=== PATIENT | female | born 1995 | race Two or more races ===

== ENCOUNTER 2018-07-02 11:29 | Emergency (ER) | payer OTHER ==
[~2018-07-02] VITALS: Ht 167.6 cm; Wt 66.7 kg
--- NOTE | 2018-07-02 11:49 | NUR ---
[id number] FROM CLINIC, VAGINAL BLEEDING SINCE THIS MORNING, 2-3 MINS CONTRATION, G3, P2, 17 WEEKS . PAIN IS 10/10. PT IS CRYING AND GUARDING FROM THE PAIN. SHE IS AOX4, AMB, TACHYCARDIC, RR EVEN AND UNLABORED ON RA. SKIN IS WARM, DRY, INTACT. READY FOR EVAL.
[2018-07-02] MEDS ORDERED: HYDROMORPHONE 1 MG/1 ML DISP.SYRIN ONE ×2 (11:52→13:08)
[2018-07-02] MEDS ORDERED: ONDANSETRON HCL/PF 4 MG/2 ML VIAL ONE (11:52)
[2018-07-02 11:54] LABS: BASOPHILS % (AUTO) 0.1 % (0.0-2.0); HEMATOCRIT 36 % (33-45); HEMOGLOBIN 12.2 g/dL (11.5-14.8); LYMPHOCYTES # (AUTO) 0.4 /CMM (0.8-4.8); MEAN CORPUSCULAR HGB CONC 34 g/dl (31.0-36.0); MEAN CORPUSCULAR VOLUME 88 fL (82-100); MONOCYTES # (AUTO) 0.3 /CMM (0.1-1.30); MONOCYTES % (AUTO) 2.2 % (2.0-12.0); NEUTROPHILS % (AUTO) 94.7 % (43.0-81.0); PLATELET COUNT (AUTO) 221 /CMM (150-450); WHITE BLOOD COUNT (AUTO) 13.8 K/uL (4.3-11.0)
[2018-07-02] MEDS ORDERED: ONDANSETRON HCL/PF 4 MG/2 ML VIAL IVP ONE (12:00)
[2018-07-02] MEDS ORDERED: IV NS 0.9% 1,000 ML BAG IV ONE (12:00)
[2018-07-02] MEDS ORDERED: HYDROMORPHONE INJ 2 MG/ML DISP.SYRIN IV ONE (12:00)
--- NOTE | 2018-07-02 12:02 | NUR ---
MEDICATION GIVEN, EASEMENT MAN AT BEDSIDE. WILL CONT TO MONITOR.
[2018-07-02 12:03] LABS: CALCIUM, SERUM 8.8 mg/dL (8.5-10.1); CREATININE 0.8 mg/dL (0.6-1.3); POTASSIUM 2.8 mmol/L (3.5-5.1)
--- NOTE | 2018-07-02 12:07 | NUR ---
CALLED , LEFT MESSAGE ON VOICEMAIL
--- NOTE | 2018-07-02 12:15 | NUR ---
PT EXPERIENCED INCOMPLETE MISCARRIAGE DURING ULTRASOUND. MADE AWARE
--- NOTE | 2018-07-02 12:26 | NUR ---
CALLED , TRANSFERRED CALL TO
--- NOTE | 2018-07-02 12:28 | NUR ---
CALLED , TRANSFERRED CALL TO
--- NOTE | 2018-07-02 12:30 | NUR ---
DR RAMON AT BEDSIDE FOR REMOVAL OF UTERINE PRODUCTS. PROVIDED PT WITH EMOTIONAL SUPPORT.
[2018-07-02] MEDS ORDERED: OXYTOCIN 10 UNIT/ML ML ONE (12:45)
[2018-07-02] MEDS ORDERED: METHYLERGONOVINE MALEATE 0.2 MG/ML AMPUL ONE (12:45)
[2018-07-02] MEDS ORDERED: METHYLERGONOVINE MALEATE 0.2 MG/ML AMPUL IM ONE (13:00)
[2018-07-02] MEDS ORDERED: OXYTOCIN 10 UNIT/ML ML IV ONE (13:00)
[2018-07-02] MEDS ORDERED: HYDROMORPHONE 1 MG/1 ML DISP.SYRIN IV ONE (14:00)
--- NOTE | 2018-07-02 14:13 | NUR ---
IV removed. Catheter intact and site benign. Pressure and 4x4 applied to site. No bleeding noted.
--- NOTE | 2018-07-02 14:30 | NUR ---
Patient discharged to home in stable condition. Written and verbal after care instructions given. Patient verbalizes understanding of instruction.
--- NOTE | 2018-07-02 14:30 | NUR ---
Heath akins in ED - 07/02/18 at 1446 by GAURI Patient discharged to home in stable condition. Written and verbal after care instructions given. Patient verbalizes understanding of instruction. IVF STILL INFUSING, SO WILL WAIT FOR COMPLETION
[2018-07-02 15:41] VITALS: BP 97/55
== END 2018-07-02 14:30 | disposition home or self-care (01) ==
LOC: ER 11:29
DX: O03.9 Complete or unspecified spontaneous abortion without complication (principal)
CPT/HCPCS: 36415; 76856; 80048; 84702; 85025; 85730; 96372; 96374; 96375; 96376; 99284; A6402; J1170 ×2; J2210; J2405; J2590; J7030 ×2; 88305-TC; 88309-TC; 88312-TC